=== PATIENT | female | born 1985 | race Caucasian/White ===

== ENCOUNTER 2020-10-01 11:24 | Emergency (ER) | payer OTHER ==
[2020-10-01] MEDS ORDERED: ACETAMINOPHEN 500 MG TAB ONE (12:22)
--- NOTE | 2020-10-01 13:10 | RAD REPORT ---
EXAM DESCRIPTION: US - Extremity Venous Uni Ltd - 10/01/2020 12:34 pm CLINICAL HISTORY: PAIN, right lower extremity COMPARISON: None available TECHNIQUE: Real-time sonographic evaluation of the right lower extremity deep venous systems was per formed. FINDINGS: Normal compressibility, flow augmentation, phasic flow and spontaneous flow are identified in the right lower extremity common femoral, superficial femoral and posterior tibial veins. Thrombu s is seen within a superficial vein in the popliteal fossa. Thrombus within the deep popliteal vein i s not identified. No deep vein intraluminal filling defects seen. IMPRESSION: No DVT in the right lower extremity. Thrombus within a superficial femoral vein popliteal fossa.
--- NOTE | 2020-10-01 13:38 | ER ---
Nurse's Notes [facility] Name: Gloria Gordon Age: 35 yrs Sex: Female : 1985 Arrival Date: 10/01/2020 Time: 11:26 Bed 24 Private MD: Petros Rizvi Diagnosis: Embolism and thrombosis of superficial veins of right lower extremities Presentation: 10/01 11:37 Chief complaint: Patient states: I think I have a blood clot on my R leg. Reports pain ca1 on R leg, R calf, increase pain with ambulation, swelling and discoloration on R leg. Coronavirus screen: Client denies travel out of the [place] in the last 14 days. At this time, the client does not indicate any symptoms associated with coronavirus-19. Ebola Screen: Patient negative for fever greater than or equal to 101.5 degrees Fahrenheit, and additional compatible Ebola Virus Disease symptoms Patient denies exposure to infectious person. Patient denies travel to an Ebola-affected area in the 21 days before illness onset. No symptoms or risks identified at this time. Initial Sepsis Screen: Does the patient meet any 2 criteria? No. Patient's initial sepsis screen is negative. Does the patient have a suspected source of infection? No. Patient's initial sepsis screen is negative. Risk Assessment: Do you want to hurt yourself or someone else? Patient reports no desire to harm self or others. Onset of symptoms was October 01, 2020. 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 - Social history:: Smoking status: Patient denies any tobacco usage or history of. Screenin:16 Abuse screen: Denies threats or abuse. Denies injuries from another. Nutritional zb screening: No deficits noted. Tuberculosis screening: No symptoms or risk factors identified. Fall Risk None identified. Assessment: 12:08 General: Appears in no apparent distress. uncomfortable, Behavior is calm, cooperative, zb appropriate for age. Pain: Complains of pain in right calf Pain radiates to right leg Pain currently is 5 out of 10 on a pain scale. at worst was 7 out of 10 on a pain scale. Quality of pain is described as aching, sharp, throbbing. Neuro: Level of Consciousness is awake, alert, obeys commands, Oriented to person, place, time, situation. Cardiovascular: Heart tones S1 S2 present Patient's skin is warm and dry. Pulses are all present. Respiratory: Airway is patent. GI: Abdomen is round. EENT: No signs and/or symptoms were reported regarding the EENT system. Derm: Skin is mottled. Musculoskeletal: Range of motion: limited in left leg. 13:25 Reassessment: Patient appears in no apparent distress at this time. Patient and/or zb family updated on plan of care and expected duration. Pain level reassessed. Patient is alert, oriented x 3, equal unlabored respirations, skin warm/dry/pink. 13:29 Reassessment: notifed ecp of patient increased pain. ecp at bedside discussing care. zb 13:50 Reassessment: pt gait steady and even ambulated out with family. zb Vital Signs: 11:37 BP 123 / 89; Pulse 104; Resp 18 S; Temp 98.2(TE); Pulse Ox 97% on R/A; Weight 65.77 kg ca1 (R); Height 5 ft. 2 in. (157.48 cm) (R); Pain 7/10; 12:17 BP 108 / 81; Pulse 96; Resp 16; Pulse Ox 97% on R/A; zb 13:25 BP 109 / 74; Pulse 86; Resp 16; Pulse Ox 97% on R/A; zb 13:49 BP 108 / 75; Pulse 88; Resp 16; Pulse Ox 98% on R/A; zb 11:37 Body Mass Index 26.52 (65.77 kg, 157.48 cm) ca1 ED Course: 11:26 Patient arrived in ED. am2 11:26 Petros Rizvi MD is Private Physician. am2 11:42 Triage completed. ca1 11:44 Arm band placed on right wrist. ca1 11:46 Hunter Khan PA is PHCP. cp 11:46 Karthikeyan Soler MD is Attending Physician. cp 12:02 Candida Del Angel, JUAREZ is Primary Nurse. zb 12:16 Patient has correct armband on for positive identification. Bed in low position. Call zb light in reach. Side rails up X 1. Adult w/ patient. Pulse ox on. NIBP on. Door closed. Noise minimized. 12:34 US Extremity Venous Unilateral Ltd In Process Unspecified. EDMS 13:48 No provider procedures requiring assistance completed. Patient did not have IV access zb during this emergency room visit. Administered Medications: 12:08 Drug: Tylenol 1000 mg Route: PO; zb 13:36 Follow up: Response: No adverse reaction; Marked relief of symptoms; Pain is unchanged, zb physician notified 13:48 Drug: Hydrocodone-Acetaminophen (7.5 mg-325 mg) 1 tabs Route: PO; zb 13:48 Follow up: Response: Medication administered at discharge. zb Outcome: 13:37 Discharge ordered by MD. cp 13:49 Discharged to home ambulatory. zb 13:49 Condition: stable 13:49 Discharge instructions given to patient, Instructed on discharge instructions, follow up and referral plans. Demonstrated understanding of instructions, follow-up care. 13:51 Patient left the ED. zb Signatures: Dispatcher [employer] EDMS Hunter Khan PA PA cp Moreno, Amanda am2 Acob, Cheryl, RN RN ca1 Candida Del Angel RN RN zb
--- NOTE | 2020-10-01 13:38 | EDPHYS ---
Physician Documentation [facility] Name: Gloria Gordon Age: 35 yrs Sex: Female : 1985 Arrival Date: 10/01/2020 Time: 11:26 Bed 24 Private MD: Petros Rizvi ED Physician Karthikeyan Soler HPI: 10/01 12:00 This 35 yrs old Female presents to ER via Ambulatory with complaints of Leg cp Pain - and discoloration. 12:00 The patient presents with pain, that is acute, swelling, tenderness. The complaints cp affect the right leg. 12:00 Associated signs and symptoms: Pertinent negatives fever, numbness, warmth, weakness. 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 - Social history:: Smoking status: Patient denies any tobacco usage or history of. ROS: 12:05 Constitutional: Negative for body aches, chills, fever, poor PO intake. cp 12:05 Eyes: Negative for injury, pain, redness, and discharge. cp 12:05 Cardiovascular: Negative for chest pain, palpitations. 12:05 Respiratory: Negative for cough, shortness of breath, wheezing. 12:05 Back: Negative for pain at rest, pain with movement. 12:05 MS/extremity: Positive for pain, swelling, tenderness, of the right leg. 12:05 Neuro: Negative for weakness. 12:05 All other systems are negative. Exam: 12:10 Constitutional: The patient appears in no acute distress, alert, awake, cp non-diaphoretic, well developed, well nourished. 12:10 Head/Face: Normocephalic, atraumatic. cp 12:10 Chest/axilla: Inspection: normal. 12:10 Cardiovascular: Rate: normal, Edema: is not appreciated, JVD: is not appreciated. 12:10 Respiratory: the patient does not display signs of respiratory distress, Respirations: normal, no use of accessory muscles, no retractions, labored breathing, is not present. 12:10 Musculoskeletal/extremity: Extremities: grossly normal except: noted in the right leg: tenderness, minimal swelling, mottled skin appearance, ROM: full active range of motion, in the right leg, Pulses: noted to be 2+ in the right dorsalis pedis artery, Sensation intact. 12:10 Skin: cellulitis, is not appreciated. Vital Signs: 11:37 BP 123 / 89; Pulse 104; Resp 18 S; Temp 98.2(TE); Pulse Ox 97% on R/A; Weight 65.77 kg ca1 (R); Height 5 ft. 2 in. (157.48 cm) (R); Pain 7/10; 12:17 BP 108 / 81; Pulse 96; Resp 16; Pulse Ox 97% on R/A; zb 13:25 BP 109 / 74; Pulse 86; Resp 16; Pulse Ox 97% on R/A; zb 13:49 BP 108 / 75; Pulse 88; Resp 16; Pulse Ox 98% on R/A; zb 11:37 Body Mass Index 26.52 (65.77 kg, 157.48 cm) ca1 MDM: 11:46 Patient medically screened. cp 13:00 Differential diagnosis: DVT, cellulitis. cp 13:36 Data reviewed: vital signs, nurses notes, radiologic studies, ultrasound. cp 13:36 Counseling: I had a detailed discussion with the patient and/or guardian regarding: the cp historical points, exam findings, and any diagnostic results supporting the discharge/admit diagnosis, radiology results, to return to the emergency department if symptoms worsen or persist or if there are any questions or concerns that arise at home. Response to treatment: the patient's symptoms have mildly improved after treatment, and as a result, I will discharge patient. ED course: VSS. Discussed results of US showing superficial thrombus of right lower extremity. Inquiry of [place] prescription monitor website shows narcotic score of 441, sedative score 190 and overdose risk score 240 with patient receiving #84 tylenol #3 with codeine on 09-20-2020. Patient instructed to f/u with primary physician for reevaluation next 2-3 days. 10/01 11:50 Order name: US Extremity Venous Unilateral Ltd; Complete Time: 13:18 cp Administered Medications: 12:08 Drug: Tylenol 1000 mg Route: PO; zb 13:36 Follow up: Response: No adverse reaction; Marked relief of symptoms; Pain is unchanged, zb physician notified 13:48 Drug: Hydrocodone-Acetaminophen (7.5 mg-325 mg) 1 tabs Route: PO; zb 13:48 Follow up: Response: Medication administered at discharge. zb Disposition: 10/01/20 13:37 Discharged to Home. Impression: Embolism and thrombosis of superficial veins of right lower extremities. - Condition is Stable. - Discharge Instructions: Venous Thromboembolism. - Medication Reconciliation Form, Thank You Letter, Antibiotic Education, Prescription Opioid Use form. - Follow up: Private Physician; When: 2 - 3 days; Reason: Worsening of condition. - Problem is new. - Symptoms have improved. Addendum: 10/06/2020 10:07 Co-signature as Attending Physician, Karthikeyan Soler MD I agree with the assessment and t w4 plan of care. Signatures: Dispatcher [employer] EDMS Hunter Khan PA PA Karthikeyan Valadez MD MD tw4 Natalie Hewitt, JUAREZ RN ca1 Candida Del Angel RN RN zb Corrections: (The following items were deleted from the chart) 10/01 13:51 13:37 10/01/2020 13:37 Discharged to Home. Impression: Embolism and thrombosis of zb superficial veins of right lower extremities. Condition is Stable. Forms are Medication Reconciliation Form, Thank You Letter, Antibiotic Education, Prescription Opioid Use. Follow up: Private Physician; When: 2 - 3 days; Reason: Worsening of condition. Problem is new. Symptoms have improved. cp
[2020-10-01] MEDS ORDERED: HYDROCODONE/APAP 7.5/325 MG TAB ONE (14:00)
[2020-10-01 14:21] VITALS: TEMP 98.2
[2020-10-01 14:24] VITALS: BP 108/75; O2SAT 98
== END 2020-10-01 13:51 | disposition home or self-care (01) ==
LOC: ER 11:24
DX: I82.811 Embolism and thrombosis of superficial veins of right lower extremity (principal); Z88.0 Allergy status to penicillin; Z88.1 Allergy status to other antibiotic agents; Z88.2 Allergy status to sulfonamides; Z88.6 Allergy status to analgesic agent; Z88.8 Allergy status to other drugs, medicaments and biological substances
CPT/HCPCS: 93971; 99284

== ENCOUNTER 2021-07-09 18:38 | Emergency (ER) | payer OTHER ==
--- OUTSIDE RECORDS SUMMARY | 2021-07-09 18:41 | XMS REPORT | Continuity of Care Document ---
:1985 Author Organization [facility] t Address [address] [place] [address] [address] [place] [address] Care Team Providers Name Role Phone QUANG Attending Clinician Unavailable Problems This patient has no known problems. Allergies, Adverse Reactions, Alerts This patient has no known allergies or adverse reactions. Medications This patient has no known medications. Procedures This patient has no known procedures. Encounters Start End Encounter Admission Attending Care Care Encounter Source Date/Time Date/Time Type Type Clinicians Facility Department ID 2021-05-23 2021-05-23 Outpatient QUANGALISA [facility] [id number] [place] 00:00:00 00:00:[address] 2021-05-11 2021-05-11 Outpatient ALISA [facility] [id number] [place] 00:00:00 00:00:[address] 2021-05-05 2021-05-05 Outpatient QUANGALISA [facility] [id number] [place] 00:00:00 00:00:[address] 2021-04-06 2021-04-06 [id number] [place] 00:[facility] 00:00:[address] Results This patient has no known results.
[2021-07-09 20:06] LABS: Absolute Lymphocytes (CBC) 2.2 K/uL (0.7-4.9); Hematocrit 42.3 % (36.0-45.0); Lymphocytes % 37.4 % (15.3-44.8); MPV 8.9 fL (7.6-11.3); RBC Red Blood Cell Count 4.76 M/uL (3.86-4.86)
[2021-07-09 20:30] LABS: ALT/SGPT 19 U/L (12-78); AST/SGOT 17 U/L (15-37); Albumin 3.8 g/dL (3.4-5.0); Alkaline Phosphatase 103 U/L (45-117); BUN Blood Urea Nitrogen 11 mg/dL (7-18); Bicarbonate 24 mmol/L (21-32); Bilirubin Direct < 0.1 mg/dL (0-0.2); Bilirubin Total 0.2 mg/dL (0.2-1.0); Glucose Level 109 mg/dL (74-106); Lipase 88 U/L (73-393); Potassium 3.7 mmol/L (3.5-5.1); Protein, Total 8.4 g/dL (6.4-8.2); Sodium Level 139 mmol/L (136-145)
[2021-07-09 20:48] LABS: SARS-COV-2 RT PCR POSITIVE (NEGATIVE)
--- NOTE | 2021-07-09 21:07 | RAD REPORT ---
EXAM DESCRIPTION: CT - Abdomen Pelvis W Contrast - 07/09/2021 8:24 pm CLINICAL HISTORY: Abdominal pain COMPARISON: none. TECHNIQUE: Computed axial tomography of the abdomen pelvis was obtained. 100 cc Isovue-300 was admin istered intravenously. Oral contrast was not requested which limits evaluation of bowel. All CT scans are performed using dose optimization technique as appropriate and may include automated exposure control or mA/KV adjustment according to patient size. FINDINGS: The liver, spleen, pancreas, adrenal and kidneys appear unremarkable. There is no evidence of diverticulitis. No adnexal mass . Tiny umbilical hernia IMPRESSION: No acute abnormality is displayed.
--- NOTE | 2021-07-09 21:16 | ER ---
Nurse's Notes [facility] Name: Gloria Gordon Age: 35 yrs Sex: Female : 1985 Arrival Date: 07/09/2021 Time: 18:41 Bed 12 Private MD: Diagnosis: Coronavirus infection, unspecified Presentation: 07/09 18:57 Chief complaint: Patient states: I started getting sick last Sunday, not feeling very ld1 well. By Sunday I was vomiting and having lower abdominal pain. Neck stiffness. Headache X 3 days. Coronavirus screen: At this time, the client does not indicate any symptoms associated with coronavirus-19. Ebola Screen: No symptoms or risks identified at this time. Initial Sepsis Screen: Does the patient meet any 2 criteria? No. Patient's initial sepsis screen is negative. Does the patient have a suspected source of infection? No. Patient's initial sepsis screen is negative. Risk Assessment: Do you want to hurt yourself or someone else? Patient reports no desire to harm self or others. Onset of symptoms was July 09, 2021. 18:57 Method Of Arrival: Ambulatory ld1 18:57 Acuity: MEGAN 4 ld1 Triage Assessment: 18:59 General: Appears in no apparent distress. comfortable, Behavior is calm, cooperative, ld1 appropriate for age. Pain: Complains of pain in abdomen. Neuro: Level of Consciousness is awake, alert, obeys commands, Oriented to person, place, time, situation. Respiratory: Airway is patent Respiratory effort is even, unlabored, Respiratory pattern is regular, symmetrical. GI: Abdomen is round non-distended. 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 - Social history:: Smoking status: Patient denies any tobacco usage or history of. Patient uses alcohol. Screenin:02 Abuse screen: Denies threats or abuse. Nutritional screening: No deficits noted. sv1 Tuberculosis screening: No symptoms or risk factors identified. Fall Risk None identified. Vital Signs: 18:57 BP 141 / 119; Pulse 93; Resp 18; Temp 98.2(TE); Pulse Ox 99% on R/A; Weight 65.77 kg; ld1 Height 5 ft. 2 in. (157.48 cm); Pain 6/10; 20:50 BP 114 / 75; Pulse 88; Resp 16; Temp 98.5; Pulse Ox 99% on R/A; Pain 5/10; sv1 18:57 Body Mass Index 26.52 (65.77 kg, 157.48 cm) ld1 ED Course: 18:41 Patient arrived in ED. as 18:59 Triage completed. ld1 18:59 Arm band placed on right wrist. ld1 19:10 Ramu Madrigal NP is PHCP. pm1 19:10 Chivo Jones MD is Attending Physician. pm1 19:13 Juliocesar Velázquez RN is Primary Nurse. sv1 19:16 Attending Physician role handed off by Chivo Jones MD [facility] 19:16 Hunter Bah MD is Attending Physician. [facility] 20:25 CT Abd/Pelvis - IV Contrast Only In Process Unspecified. EDMS 22:02 Patient has correct armband on for positive identification. Bed in low position. Call sv1 light in reach. Side rails up X2. Adult w/ patient. 22:02 No provider procedures requiring assistance completed. IV discontinued. sv1 Administered Medications: No medications were administered Point of Care Testing: Urine : 20:12 hCG Reading: Negative; Control Reading: Negative; sv1 20:12 Exp: 11/15/2022; Lot #: [id number] exp 11/15; sv1 Outcome: 21:15 Discharge ordered by . pm1 22:02 Discharged to home ambulatory. sv1 22:02 Condition: good 22:02 Discharge instructions given to patient. 22:03 Patient left the ED. sv1 Signatures: Dispatcher [employer] EDUT Hunter Bah MD MD cha Martinez, Amelia as Ramu Madrigal NP [employer] G[employer]ING INSPECT[employer] pm1 Gabriela Wilson, RN RN ld1 Juliocesar Velázquez, RN RN sv1
--- NOTE | 2021-07-09 21:16 | EDPHYS ---
Physician Documentation [facility] Name: Gloria Gordon Age: 35 yrs Sex: Female : 1985 Arrival Date: 07/09/2021 Time: 18:41 Bed 12 Private MD: ED Physician Hunter Bah HPI: 07/09 19:26 This 35 yrs old Female presents to ER via Ambulatory with complaints of Fever, pm1 Abdominal Pain, Vomiting, Headache. 19:26 The patient reports fever, not measured (subjective). Onset: The symptoms/episode pm1 began/occurred 3 day(s) ago. Modifying factors: unaware of sick contact. Associated signs and symptoms: Pertinent positives: abdominal pain, earache, headache, sore throat, vomiting, Pertinent negatives: diarrhea. Severity of symptoms: in the emergency department the symptoms are worse. The patient has not experienced similar symptoms in the past. The patient has not recently seen a physician. 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 - Social history:: Smoking status: Patient denies any tobacco usage or history of. Patient uses alcohol. ROS: 19:26 Cardiovascular: Negative for chest pain, palpitations, and edema, Respiratory: Negative pm1 for shortness of breath, cough, wheezing, and pleuritic chest pain. 19:26 Back: Negative for injury and pain, : Negative for injury, bleeding, discharge, and swelling, MS/Extremity: Negative for injury and deformity, Skin: Negative for injury, rash, and discoloration. 19:26 Constitutional: Positive for body aches, fever, poor PO intake. 19:26 ENT: Positive for ear pain, sore throat. 19:26 Abdomen/GI: Positive for abdominal pain, nausea and vomiting, Negative for diarrhea. 19:26 Neuro: Positive for headache. 19:26 All other systems are negative. Exam: 19:26 Constitutional: This is a well developed, well nourished patient who is awake, alert, pm1 and in no acute distress. Head/Face: Normocephalic, atraumatic. Eyes: Pupils equal round and reactive to light, extra-ocular motions intact. Lids and lashes normal. Conjunctiva and sclera are non-icteric and not injected. Cornea within normal limits. Periorbital areas with no swelling, redness, or edema. ENT: Nares patent. No nasal discharge, no septal abnormalities noted. Tympanic membranes are normal and external auditory canals are clear. Oropharynx with no redness, swelling, or masses, exudates, or evidence of obstruction, uvula midline. Mucous membranes moist. Neck: Trachea midline, no thyromegaly or masses palpated, and no cervical lymphadenopathy. Supple, full range of motion without nuchal rigidity, or vertebral point tenderness. No Meningismus. 19:26 Back: No spinal tenderness. No costovertebral tenderness. Full range of motion. Skin: Warm, dry with normal turgor. Normal color with no rashes, no lesions, and no evidence of cellulitis. MS/ Extremity: Pulses equal, no cyanosis. Neurovascular intact. Full, normal range of motion. 19:26 Cardiovascular: Exam negative for acute changes, Rate: normal, Rhythm: regular, Pulses: no pulse deficits are appreciated, Heart sounds: normal, normal S1and S2. 19:26 Respiratory: Exam negative for acute changes, respiratory distress, shortness of breath, Breath sounds: are clear throughout. 19:26 Abdomen/GI: Inspection: abdomen appears normal, Palpation: soft, in all quadrants, mild abdominal tenderness, in the left lower quadrant. 19:26 Neuro: Exam negative for acute changes, Orientation: is normal, Mentation: is normal, Motor: is normal, moves all fours. Vital Signs: 18:57 BP 141 / 119; Pulse 93; Resp 18; Temp 98.2(TE); Pulse Ox 99% on R/A; Weight 65.77 kg; ld1 Height 5 ft. 2 in. (157.48 cm); Pain 6/10; 20:50 BP 114 / 75; Pulse 88; Resp 16; Temp 98.5; Pulse Ox 99% on R/A; Pain 5/10; sv1 18:57 Body Mass Index 26.52 (65.77 kg, 157.48 cm) ld1 MDM: 19:16 Patient medically screened. kasey 21:15 Data reviewed: vital signs. Data interpreted: Pulse oximetry: on room air is 99 %. pm1 Interpretation: normal. Counseling: I had a detailed discussion with the patient and/or guardian regarding: the historical points, exam findings, and any diagnostic results supporting the discharge/admit diagnosis, lab results, radiology results, the need for outpatient follow up, to return to the emergency department if symptoms worsen or persist or if there are any questions or concerns that arise at home. 07/09 19:24 Order name: Basic Metabolic Panel pm1 07/09 19:24 Order name: CBC with Diff; Complete Time: 20:22 pm1 07/09 19:24 Order name: Hepatic Function; Complete Time: 20:38 pm1 07/09 19:24 Order name: Lipase; Complete Time: 20:38 pm1 07/09 19:24 Order name: COVID-19/FLU A+B (Document "Date of Onset" if Symptomatic); Complete Time: pm1 20:58 07/09 19:24 Order name: Strep; Complete Time: 20:22 pm1 07/09 19:24 Order name: IV Saline Lock pm1 07/09 19:24 Order name: Labs collected and sent pm1 07/09 19:24 Order name: Urine Dipstick-Ancillary (obtain specimen) pm1 07/09 19:24 Order name: Urine Test (obtain specimen) pm1 07/09 19:24 Order name: CT Abd/Pelvis - IV Contrast Only; Complete Time: 21:14 pm1 07/09 19:24 Order name: Basic Metabolic Panel; Complete Time: 20:38 EDMS 07/09 20:22 Order name: Throat Culture EDMS Administered Medications: No medications were administered Point of Care Testing: Urine : 20:12 hCG Reading: Negative; Control Reading: Negative; sv1 20:12 Exp: 11/15/2022; Lot #: [id number] exp 11/15; sv1 Disposition: 07/10 07:08 Co-signature as Attending Physician, Hunter Bah MD I agree with the assessment and kasey plan of care. Disposition Summary: 07/09/21 21:15 Discharge Ordered Location: Home pm1 Problem: new pm1 Symptoms: have improved pm1 Condition: Stable pm1 Diagnosis - Coronavirus infection, unspecified pm1 Followup: pm1 - With: Emergency Department - When: As needed - Reason: Worsening of condition Followup: pm1 - With: Private Physician - When: 2 - 3 days - Reason: Recheck today's complaints, Continuance of care, Re-evaluation by your physician Discharge Instructions: - Discharge Summary Sheet pm1 - COVID-19 pm1 - COVID-19 Frequently Asked Questions pm1 - 10 Things You Can Do to Manage Your COVID-19 Symptoms at Home - [facility] [place] pm[place] - COVID-19: Quarantine vs. Isolation - [facility] [place] pm1 Forms: - Medication Reconciliation Form pm1 - Thank You Letter pm1 - Antibiotic Education pm1 - Prescription Opioid Use pm1 Prescriptions: - ondansetron 4 mg Oral tablet,disintegrating - place 1 tablet by TRANSLINGUAL route every 8 hours As needed; 15 tablet; pm1 Refills: 0, Product Selection Permitted Signatures: Dispatcher [employer] EDHunter Dumont MD MD cha Marinas, Patrick, CORPORATE SALES MANAGER CORPORATE SALES MANAGER pm1 Gabriela Wilson, RN RN ld1
[2021-07-09 22:10] VITALS: O2SAT 99
[2021-07-09 22:12] VITALS: BP 114/75; TEMP 98.5
== END 2021-07-09 22:03 | disposition home or self-care (01) ==
LOC: ER 18:38
DX: U07.1 COVID-19 (principal); Z88.0 Allergy status to penicillin; Z88.1 Allergy status to other antibiotic agents; Z88.2 Allergy status to sulfonamides; Z88.6 Allergy status to analgesic agent; Z88.8 Allergy status to other drugs, medicaments and biological substances
CPT/HCPCS: 87070; 85025; 80048; 36415; 82565; 80076; 87081; 83690; 0240U; 74177; 99283; Q9967